=== PATIENT | female | born 1995 | race Caucasian/White ===

== ENCOUNTER 2016-08-15 09:07 | Inpatient (IN) | payer OTHER ==
[~2016-08-15] VITALS: Ht 167.6 cm; Wt 82.0 kg
[~2016-08-15 09:07] MED LIST: PREN1TAB17 PO
[2016-08-15] MEDS ORDERED: LACTATED RINGER'S 1,000 ML IV PRN (09:30)
[2016-08-15] MEDS ORDERED: OXYTOCIN 30 UNITS/LR 500 ML IV PRN (10:30)
[2016-08-15] MEDS ORDERED: BUTORPHANOL 2 MG INJ IV PRN (10:30)
[2016-08-15] MEDS ORDERED: CARBOPROST 250 MCG INJ IM PRN (10:30)
[2016-08-15] MEDS ORDERED: LIDOCAINE 1% (MPF) 30 ML INJ INJ PRN (10:30)
[2016-08-15] MEDS ORDERED: METHYLERGONOVINE 0.2 MG INJ IM PRN (10:30)
[2016-08-15] MEDS ORDERED: MISOPROSTOL 200 MCG TAB PR PRN (10:30)
[2016-08-15] MEDS ORDERED: OXYTOCIN 30 UNITS/LR 500 ML IV SCH ×2 (10:30)
[2016-08-15] MEDS ORDERED: DINOPROSTONE 10 MG VAG SUPP VAG ONE (10:30)
[2016-08-15 10:40] LABS: INR 0.91; PARTIAL THROMBOPLASTIN TIME 24.6 Sec (25.0-35.0); PROTIME 12.2 Sec (12.2-14.2)
[2016-08-15] MEDS: LACTATED RINGER'S 1,000 ML IV SCH ×2 (10:51→15:50)
[2016-08-15 10:52] LABS: BASOPHILS % 0.5 % (0.0-2.0); EOSINOPHILS # 0.2 10^3/ul (0.0-0.5); EOSINOPHILS % 1.9 % (0.0-7.0); HEMATOCRIT 33.5 % (37.0-47.0); HEMOGLOBIN 10.7 g/dl (12.0-16.0); LYMPHOCYTES # 1.6 10^3/ul (0.8-2.9); LYMPHOCYTES % 16.3 % (18.0-55.0); MEAN CORPUSCULAR HEMOGLOBIN 22.9 pg (29.0-33.0); MEAN CORPUSCULAR HGB CONC 32.1 g/dl (32.0-37.0); MEAN CORPUSCULAR VOLUME 71.2 fl (72.0-104.0); MEAN PLATELET VOLUME 12.1 fl (7.4-10.4); MONOCYTE # 0.6 10^3/ul (0.3-0.9); MONOCYTES % 6.2 % (0.0-13.0); NEUTROPHIL # 7.2 10^3/ul (1.6-7.5); NEUTROPHILS % 75.1 % (30.0-74.0); PLATELET COUNT 211 10^3/UL (140-440); RED CELL DISTRIBUTION WIDTH 15.7 % (11.5-14.5); UNCORRECTED WBC 9.6 10^3/ul (4.8-10.8); WHITE BLOOD COUNT 9.6 10^3/ul (4.8-10.8)
--- NOTE | 2016-08-15 11:04 | HP ---
Date/Time of Note Date/Time of Note DATE: 08/15/16 TIME: 11:01 OB - History Hx of Present Free Text/Dictation admitted for elective H&P at term Last Menstrual Period: Oct 25, 2015 Estimated Due Date: Aug 16, 2016 : 1 Para: 0 Care: Good Care Ultrasounds: Normal mid trimester US Obstetrical Complications: None Medical Complications: None Past Family/Social History * Past Medical, Surgical, Family and Obstetric Histories reviewed from chart. Blood Type: B+ Rubella: immune RPR/VDRL: Negative GBS Status: Negative HBsAG: Negative OB Admission Exam Physical Exam HEENT: WNL Heart: Rhythm Normal Lungs: Clear, Equal Abdomen: WNL Extremities: Normal Reflexes: Normal Cervical Dilatation: None Effacement: 0% Station: -3 Membranes: Intact Heart Rate: 140's Accelerations: Accelerations Present Decelerations: No Decelerations Varibility: Marked Contractions on Admission: None OB Assessment/Plan Reason for admission: induction of labor Other Assessment: term gestation Induction Method: per Misoprostol Protocol BRODIE PABON MD Aug 15, 2016 11:04
[2016-08-15 11:11] LABS: CONDITION 1; LH ANALYZER COMMENTS 1; SUSPECT 1
[2016-08-16] MEDS: LACTATED RINGER'S 1,000 ML IV SCH ×3 (01:01→14:33)
[2016-08-16] MEDS ORDERED: NALOXONE (0.4 MG/ML) INJ IV PRN (02:30)
[2016-08-16] MEDS ORDERED: ONDANSETRON 4 MG INJ IV PRN (02:30)
[2016-08-16] MEDS ORDERED: FENTAnyl 2MCG/ML-ROPIV 0.2% 100 ML BAG EPI SCH (02:30)
[2016-08-16] MEDS ORDERED: DIPHENHYDRAMINE 50 MG INJ IV PRN (02:30)
[2016-08-16] MEDS ORDERED: OXYTOCIN 30 UNITS/LR 500 ML IV SCH (10:40)
[2016-08-16] MEDS ORDERED: MINERAL OIL LIGHT 10 ML VIAL TOP ONE (16:50)
--- NOTE | 2016-08-16 20:01 | LDN ---
Date/Time of Note Date/Time of Note DATE: 08/16/16 TIME: 19:59 Delivery Summary of a viable over intact perineum Placenta Delivered: Spontaneously, Intact & Complete Meconium: none Perineum intact?: No Perineal laceration: 2 Perineal laceration repair: 2nd deagree perineal lacerations were repaired with 2 0 Vicryl and 2 0 chromic Anesthesia type: Epidural Estimated blood loss: 300 Sponge & Needle done & correct: Yes All needle counts correct: Yes Any foreign bodies felt in the: No Problems: Delivery Information Sex Sex: female Apgars 1 Minute: 8 5 Minute: 9 Suctioning Nose & mouth suctioned at nnamdi: Yes Delee suction performed: No Umbilical Cord Umbilical cord with: 3 Vessels Cord presentations: nuchal cord Nuchal cord present X: 1 Cord Blood was obtained: Yes Mother & Baby Disposition Disposition Mom & Baby to Maternity; Good: Yes (mother and baby were recovered in good condition ) Mom transferred to: Other (maternity ) Baby to NICU: No BRODIE PABON MD Aug 16, 2016 20:01
[2016-08-16] MEDS ORDERED: IBUPROFEN 600 MG TAB PO PRN (21:30)
[2016-08-16 21:35] VITALS: BP 105/69; PULSE 80; RESP 0
--- NOTE | 2016-08-16 21:51 | DELSUM ---
Delivery Summary A-C Datetime Report Generated by CPN: 08/16/2016 21:50 DELIVERY PERSONNEL Textbook Associate: Cecelia Garay MATERNAL INFORMATION Delivery Anesthesia: Epidural Medications in Delivery: 30 UNITS PITOCIN IN 500 ML LR Estimated Blood Loss (ml): 300 Placenta Cultured: No Maternal Complications: None RN Comments: Induction of labor LABOR SUMMARY EDC: 08/16/2016 00:00 No. Babies in Womb: 1 Attempted: No Labor Anesthesia: Epidural LABOR INFORMATION Reason for Induction: Other Reason for Induction- Other: TERM Onset of Labor: 08/16/2016 07:00 Complete Dilatation: 08/16/2016 14:21 Cervical Ripening Agents: Cervidil Oxytocin: Induction Group B Beta Strep: Negative Antibiotics # of Doses: 0 Antibiotics Time of Last Dose: 0 Steroids Given: None Reason Steroids Not Administered: Not Applicable MEMBRANES Membranes Rupture Method: Spontaneous Rupture of Membranes: 08/16/2016 13:29 Length of Rupture (hr): 5.58 Amniotic Fluid Color: Clear Amniotic Fluid Amount: Small Amniotic Fluid Odor: Normal STAGES OF LABOR Stage 1 hr: 7 Stage 1 min: 21 Stage 2 hr: 4 Stage 2 min: 43 Stage 3 hr: 0 Stage 3 min: 1 Total Time in Labor hr: 12 Total Time in Labor min: 5 VAGINAL DELIVERY Episiotomy: None Laceration Extension: Second Degree Laceration Type: Perineal Laceration Repair: Yes Initial Vag Sponge Count: 20 Final Vag Sponge Count: 20 Initial Vag Sharps Count: 4 Final Vag Sharps Count: 4 Sponge Count Correct: Yes Sharps Count Correct: Yes BABY A INFORMATION Delivery Date/Time: 08/16/2016 19:04 Method of Delivery: Vaginal Born in Route : No : N/A Forceps: N/A Vacuum Extraction: N/A Shoulder Dystocia : N/A SHOULDER DYSTOCIA BABY A Delivery Date/Time: 08/16/2016 19:04 PRESENTATION/POSITION BABY A Presentation: Cephalic Cephalic Presentation: Vertex Vertex Position: Left Occipital Anterior Breech Presentation: N/A PLACENTA INFORMATION BABY A Placenta Delivery Time : 08/16/2016 19:05 Placenta Method of Delivery: Spontaneous Placenta Status: Delivered SCORES BABY A Heart Rate 1 min: >100 bpm Resp Effort 1 min: Good Cry Reflex Irritability 1 min: Cough/Sneeze/Pulls Away Muscle Tone 1 min: Active Motion Color 1 min: Blue/Pale Resuscitation Effort 1 min: Tactile Stimulation SCORE 1 MIN: 8 Heart Rate 5 min: >100 bpm Resp Effort 5 min: Good Cry Reflex Irritability 5 min: Cough/Sneeze/Pulls Away Muscle Tone 5 min: Active Motion Color 5 min: Body Gilbert, Extremit Blue Resuscitation Effort 5 min: Tactile Stimulation SCORE 5 MIN: 9 INFORMATION BABY A Gestational Age at Delivery: 40.0 Gestational Status: Full Term- 39- 40.6 Weeks Infant Outcome : Liveborn Infant Condition : Stable Sex: Female IDENTIFICATION/MEDS BABY A ID Band Number: [id number] ID Band Location: Right Leg; Left Arm Sensor Applied: Yes Sensor Number: [id number] Sensor Location : Cord Clamp Vitamin K Given : Not Given Erythromycin Given: Not Given WEIGHT/LENGTH BABY A Birthweight (gm): 3105 Weight (lb): 6 Weight (oz): 14 Length (in): 19.00 Infant Length (cm): 48.26 CORD INFORMATION BABY A No. Cord Vessels: 3 Nuchal Cord : Around Neck x1, Loose Nuchal Cord- Other: AROUND THE BODY Cord Blood Taken: Yes Suction: Mouth; Nose ASSESSMENT BABY A Complications: None Physical Findings at Delivery: Within Normal Limits Infant Respirations: Appears Normal Dispensing Optician/ALS Called : Yes Infant Care By: Kelsey Hardin Transferred To: Remains with Mother
[2016-08-16] MEDS ORDERED: BENZOCAINE 20% 56 ML SPRAY TOP PRN (22:00)
[2016-08-16] MEDS ORDERED: CARBOPROST 250 MCG INJ IM PRN (22:00)
[2016-08-16] MEDS ORDERED: MISOPROSTOL 200 MCG TAB PR PRN (22:00)
[2016-08-16] MEDS ORDERED: METHYLERGONOVINE 0.2 MG INJ IM PRN (22:00)
[2016-08-16] MEDS ORDERED: OXYTOCIN 30 UNITS/LR 500 ML IV PRN (22:00)
[2016-08-16] MEDS ORDERED: ZOLPIDEM 5 MG TAB PO PRN (22:00)
[2016-08-16] MEDS ORDERED: LANOLIN 7 GM TUBE TOP PRN (22:00)
[2016-08-16] MEDS ORDERED: DIBUCAINE 1% 30 GM OINT PR PRN (22:00)
[2016-08-16] MEDS ORDERED: WITCH HAZEL/GLYCERIN PAD PR PRN (22:00)
[2016-08-16] MEDS ORDERED: ACETAMINOPHEN/CODEINE #3 TAB PO PRN (22:00)
[2016-08-16 22:05] VITALS: BP 116/66; PULSE 74; RESP 18
[2016-08-16] MEDS: LACTATED RINGER'S 1,000 ML IV* SCH (23:19)
[2016-08-16] MEDS: MAGNESIUM HYDROXIDE 30ML CUP PO SCH (23:19)
[2016-08-17 00:30] VITALS: BP 119/58; PULSE 76; RESP 18
[2016-08-17] MEDS: ACETAMINOPHEN/CODEINE #3 TAB PO PRN ×2 (04:02→09:51)
[2016-08-17 04:20] VITALS: BP 118/64; PULSE 73; RESP 18
[2016-08-17] MEDS: LACTATED RINGER'S 1,000 ML IV* SCH ×3 (05:59→21:01)
[2016-08-17] MEDS: CEPHALEXIN 500 MG CAP PO SCH ×4 (06:09→17:19)
[2016-08-17] MEDS: IBUPROFEN 600 MG TAB PO SCH ×4 (06:09→17:19)
[2016-08-17 08:00] VITALS: BP 128/60; PULSE 74; RESP 18
[2016-08-17 08:13] LABS: BASOPHIL # 0.1 10^3/ul (0.0-0.1); BASOPHILS % 0.4 % (0.0-2.0); EOSINOPHILS # 0.1 10^3/ul (0.0-0.5); EOSINOPHILS % 0.6 % (0.0-7.0); HEMATOCRIT 29.4 % (37.0-47.0); HEMOGLOBIN 9.5 g/dl (12.0-16.0); LYMPHOCYTES # 2.3 10^3/ul (0.8-2.9); LYMPHOCYTES % 15.5 % (18.0-55.0); MEAN CORPUSCULAR HEMOGLOBIN 23.3 pg (29.0-33.0); MEAN CORPUSCULAR HGB CONC 32.3 g/dl (32.0-37.0); MEAN CORPUSCULAR VOLUME 72.2 fl (72.0-104.0); MEAN PLATELET VOLUME 11.8 fl (7.4-10.4); MONOCYTE # 0.7 10^3/ul (0.3-0.9); MONOCYTES % 4.8 % (0.0-13.0); NEUTROPHIL # 11.5 10^3/ul (1.6-7.5); NEUTROPHILS % 78.7 % (30.0-74.0); PLATELET COUNT 179 10^3/UL (140-440); RED BLOOD COUNT 4.07 10^6/ul (4.20-5.40); RED CELL DISTRIBUTION WIDTH 16.4 % (11.5-14.5); UNCORRECTED WBC 14.6 10^3/ul (4.8-10.8); WHITE BLOOD COUNT 14.6 10^3/ul (4.8-10.8)
[2016-08-17 08:17] LABS: CONDITION 1; LH ANALYZER COMMENTS 1; SUSPECT 1
[2016-08-17] MEDS: MAGNESIUM HYDROXIDE 30ML CUP PO SCH ×2 (09:49→21:00)
[2016-08-17] MEDS: SENNA/DOCUSATE NA (8.6MG/50MG) TAB PO SCH ×2 (09:49→21:00)
--- NOTE | 2016-08-17 14:04 | DS ---
Date/Time of Note Date/Time of Note home next day DATE: 08/17/16 TIME: 14:03 Obstetrical Discharge Record Final Diagnosis Final Diagnosis: Term delivered Other Final Diagnosis S/P vaginal delivery Vaginal Delivery Obstetrical Delivery: Spontaneous, Laceration, Repaired Complications Augmentation: Yes Induction: Yes Condition on Discharge Physical Assessment Last Vitals: see nurses notes Voiding: Yes Bowel Movement: Yes Breast: Soft, non-tender, Filling Fundus: Firm Abdomen and Incision: soft BS + Episiotomy: perineum: healing Calf Tenderness: No Patient Condition: Good BRODIE PABON MD Aug 17, 2016 14:04
--- NOTE | 2016-08-17 14:06 | PD.PPDC ---
TRANSFER [employer] DRIER Discharge Instruction Provider Information Physician Information 20 y/o female had vaginal delivery Diagnosis Final Diagnosis: S/P vaginal delivery Condition Patient Condition: Good Diet Diet: Resume Regular Diet Activity/Restrictions Activity: Normal Activity May Shower Restrictions: Nothing in the Vagina Return to Work or School: Oct 02, 2016 Follow-up Follow-up with Physician: 4, Week/Weeks Return to clinic for OB Instructions: Breast Tenderness Depression Comment: pelvic rest x 6 weeks BRODIE PABON MD Aug 17, 2016 14:06
[2016-08-17] MEDS ORDERED: IBUP-1542 PO (14:07)
[2016-08-17 16:00] VITALS: BP 123/86; PULSE 83; RESP 19
[2016-08-17 19:35] VITALS: BP 112/82; PULSE 72; RESP 18
[2016-08-18] MEDS: CEPHALEXIN 500 MG CAP PO SCH ×2 (00:06→05:58)
[2016-08-18] MEDS: IBUPROFEN 600 MG TAB PO SCH ×2 (00:06→05:58)
[2016-08-18 04:15] VITALS: BP 130/66; PULSE 79; RESP 18
[2016-08-18] MEDS: LACTATED RINGER'S 1,000 ML IV* SCH (05:57)
[2016-08-18 07:29] LABS: BASOPHIL # 0.1 10^3/ul (0.0-0.1); BASOPHILS % 0.5 % (0.0-2.0); EOSINOPHILS # 0.3 10^3/ul (0.0-0.5); EOSINOPHILS % 2.3 % (0.0-7.0); HEMATOCRIT 27.4 % (37.0-47.0); HEMOGLOBIN 8.8 g/dl (12.0-16.0); LYMPHOCYTES # 2.4 10^3/ul (0.8-2.9); LYMPHOCYTES % 19.9 % (18.0-55.0); MEAN CORPUSCULAR HEMOGLOBIN 23.2 pg (29.0-33.0); MEAN CORPUSCULAR HGB CONC 32.2 g/dl (32.0-37.0); MEAN PLATELET VOLUME 11.8 fl (7.4-10.4); MONOCYTE # 0.6 10^3/ul (0.3-0.9); MONOCYTES % 4.7 % (0.0-13.0); NEUTROPHIL # 8.9 10^3/ul (1.6-7.5); NEUTROPHILS % 72.6 % (30.0-74.0); PLATELET COUNT 178 10^3/UL (140-440); RED CELL DISTRIBUTION WIDTH 16.5 % (11.5-14.5); UNCORRECTED WBC 12.2 10^3/ul (4.8-10.8); WHITE BLOOD COUNT 12.2 10^3/ul (4.8-10.8)
[2016-08-18 07:33] LABS: CONDITION 1; LH ANALYZER COMMENTS 1; SUSPECT 1
[2016-08-18 08:14] VITALS: BP 125/82; PULSE 86; RESP 20
[2016-08-18] MEDS: MAGNESIUM HYDROXIDE 30ML CUP PO SCH (08:54)
[2016-08-18] MEDS: SENNA/DOCUSATE NA (8.6MG/50MG) TAB PO SCH (08:54)
[2016-08-18] MEDS: ACETAMINOPHEN/CODEINE #3 TAB PO PRN (08:55)
[2016-08-18] MEDS ORDERED: VARICELLA VACCINE LIVE/PF 1,350 UNIT/0.5 ML ML SC* ONE (09:00)
[2016-08-18] MEDS ORDERED: MEASLES,MUMPS,RUBELLA VACCINE INJ SC* ONE (09:00)
[2016-08-18] MEDS ORDERED: DIPHTH/TET/ACEL PERTUSS (ADULT) 0.5 ML VIAL IM* ONE (09:00)
== END 2016-08-18 13:50 | disposition home or self-care (01) | DRG 775 ==
LOC: L-D 09:07 → PP1 08-16 21:27
PROVIDERS: ADMIT Obstetrics & Gynecology; ATTEND Obstetrics & Gynecology
PROC: 10E0XZZ Delivery of Products of Conception, External Approach (ICD-10-PCS; principal; 2016-08-16)
PROC: 0KQM0ZZ Repair Perineum Muscle, Open Approach (ICD-10-PCS; 2016-08-16)
PROC: 3E0P7GC Introduction of Other Therapeutic Substance into Female Reproductive, Via Natural or Artificial Opening (ICD-10-PCS; 2016-08-16)
DX: O70.1 Second degree perineal laceration during delivery (principal); Z37.0 Single live birth; Z3A.39 39 weeks gestation of pregnancy
CPT/HCPCS: 62319; 85025; 85610; 85730; 86592; 86703; 86900; 86901; 90715; 90716; 99464; J2590; J3010; J7120

== ENCOUNTER 2016-12-17 00:20 | Emergency (ER) | payer OTHER ==
[~2016-12-17] VITALS: Wt 68.0 kg
[~2016-12-17 00:20] MED LIST changes: +IBUP-1542 PO
--- NOTE | 2016-12-17 02:51 | ERA ---
ER Documentation Chief Complaint Date/Time DATE: 12/17/16 TIME: 02:49 Chief Complaint Fall and hit the back on the pole. Back pain HPI This is a 21-year-old female who presents 4 hours after tripping and falling on a light pole. Patient describes pain in the lower back that is 7 out of 10 and worse with movement. Patient has not taken any medications to relieve the symptoms. Positive history of back injury 1 year ago without diagnosis. Patient's history is unreliable. Denies loss of bowel or bladder control, loss of consciousness, injury to other body parts. ROS All systems reviewed and are negative except as per history of present illness. Medications Home Meds Active Scripts Ibuprofen* (Ibuprofen*) 600 Mg Tablet, 600 MG PO Q6, #20 TAB 0 Refills Prov:BRODIE PABON MD 08/17/16 Reported Medications Vit-Iron Fumarate-FA ( Tablet) 1 Each Tablet, 1 TAB PO DAILY, TAB 04/25/16 Allergies Allergies: Coded Allergies: No Known Drug Allergy (Verified Allergy, Unknown, 04/25/16) PMhx/Soc Medical and Surgical Hx: pt denies Medical Hx, pt denies Surgical Hx History of Surgery: No Anesthesia Reaction: No Hx Neurological Disorder: No Hx Respiratory Disorders: No Hx Cardiac Disorders: No Hx Psychiatric Problems: No Hx Miscellaneous Medical Probl: No Hx Alcohol Use: No Hx Substance Use: No Hx Tobacco Use: No Smoking Status: Never smoker Physical Exam Vitals Vital Signs Date Time Temp Pulse Resp B/P Pulse Ox O2 Delivery O2 Flow Rate FiO2 12/17/16 00:24 98.2 66 20 108/60 98 Physical Exam Const: Patient is in a wheelchair and on presentation is happy. As exam goes on becomes noncompliant and upset and suddenly becomes an acute distress. No distracting injuries. Head: Atraumatic Eyes: Normal Conjunctiva ENT: Normal External Ears, Nose and Mouth. Neck: Full range of motion..~ No meningismus. Resp: Clear to auscultation bilaterally Cardio: Regular rate and rhythm, no murmurs Abd: Soft, non tender, non distended. Normal bowel sounds Skin: No petechiae or rashes Back: No midline or flank tenderness. Limited range of motion secondary to pain. Ext: No cyanosis, or edema. Pulses 2+ bilaterally. Neur: Awake and alert. Neurovascularly intact bilaterally. Psych: Noncompliant with exam. Acting overemotional. Do not believe there is any endangerment of herself or other people and she denies wanting to hurt herself or other people. Results 24 hrs Current Medications Medications (Trade) Dose Ordered Sig/Celine Route PRN Reason Start Time Stop Time Status Last Admin Dose Admin Acetaminophen/ Hydrocodone Bitart ([place] (5/325)) 1 tab ONCE ONCE PO 12/17/16 03:00 12/17/16 03:01 DC 12/17/16 03:00 Procedures/MDM 21-year-old female being worked up for acute back pain. Patient had a mechanism of injury including tripping and hitting a slight pull on the way down. Patient describes her pain as 10 out of 10 and worse with movement. Patient is able to ambulate. Since there is mechanism of injury went ahead and got an x-ray of the lumbar spine which was negative. Patient is neurovascularly intact bilaterally. DTRs were unobtainable due to compliance. Straight leg test was unobtainable due to compliance. Limited range of motion secondary to pain. There is no midline tenderness. We will go ahead and discharge the patient with ibuprofen as I believe muscle relaxers and narcotics are not appropriate at this time. At this time I have no suspicion for cauda equina syndrome, or endangerment of the spinal cord. Patient has stable vital signs and her condition is currently appropriate for discharge. Patient will be discharged with instructions and return precautions. Departure Diagnosis: Primary Impression: Back pain Qualified Code: M54.5 - Acute low back pain, unspecified back pain laterality , with sciatica presence unspecified Additional Impression: Injury of back Qualified Code: S39.92XA - Injury of back, initial encounter Condition: Stable Additional Instructions: Follow up with your PCP within the next 1-3 days for a more thorough evaluation and a possible referral to a specialist. Return the the emergency department immediately if symptoms worsen or change. If you have any questions regarding medications, ask your pharmacist or us before you leave. If any adverse reactions occur while taking your medications, discontinue the treatment and return to the emergency department immediately. Take your medications as directed, and complete the entire course of treatment. URI TREJO PA-C December 17, 2016 02:51
[2016-12-17] MEDS ORDERED: HYDROCODONE/APAP (5/325) TAB PO ONE (03:00)
--- NOTE | 2016-12-17 03:36 | RADRPT ---
PROCEDURE: XR Lumbar Spine. CLINICAL INDICATION: trauma TECHNIQUE: 3 views of the lumbar spine were obtained. COMPARISON: No prior studies are available for comparison. FINDINGS: Slight leftward scoliosis of the spine is likely positional. Vertebral body and disk space heights are preserved. No fracture or significant listhesis is seen. No lytic or blastic lesion. No visua lized soft tissue abnormality. IMPRESSION: No definite acute bony abnormality. RPTAT: [facility]BE Physician Barb Date Time Electronically viewed and signed by Aracely Bhatia Physician on 12/17/2016 03:35 LE/
[2016-12-17] MEDS ORDERED: IBUP-1542 PO (03:47)
[2016-12-17 04:09] VITALS: PULSE 98; RESP 20; TEMP 98.6
== END 2016-12-17 04:10 | disposition home or self-care (01) ==
LOC: FTE 00:20
DX: S39.92XA Unspecified injury of lower back, initial encounter (principal); W01.198A Fall on same level from slipping, tripping and stumbling with subsequent striking against other object, initial encounter; Y92.9 Unspecified place or not applicable
CPT/HCPCS: 72100; Z7502; Z7610

== ENCOUNTER 2017-06-07 23:17 | Emergency (ER) | payer SELFPAY ==
[~2017-06-07] VITALS: Ht 162.6 cm; Wt 73.0 kg
[2017-06-07 23:20] VITALS: Ht 162.6 cm; Wt 73.0 kg
[2017-06-08 02:03] LABS: URINE BLOOD (Dip) POC Negative (NEGATIVE)
--- NOTE | 2017-06-08 02:53 | ERD ---
ER Documentation Chief Complaint Chief Complaint c/o intermittent lower abd pain x 1 month. (+) n/v. Worse tonight. HPI 21-year-old female presents with a chief complaint of lower abdominal pain 1 month. No aggravating or alleviating factors. Denies fever or chills. No sick contacts. No vomiting in the past week. Patient thinks that she might be . Last menstrual period 1-2 months ago. Able to tolerate p.o. Patient has no other complaints and describes no other associated manifestations. Nursing notes have been reviewed and are consistent with history given. ROS All systems reviewed and are negative except as per history of present illness. Medications Home Meds Active Scripts Ibuprofen* (Motrin*) 600 Mg Tab, 600 MG PO Q6H Y for PAIN AND OR ELEVATED TEMP, #30 TAB Prov:URI TREJO PA-C 12/17/16 Ibuprofen* (Ibuprofen*) 600 Mg Tablet, 600 MG PO Q6, #20 TAB 0 Refills Prov:BRODIE PABON MD 08/17/16 Reported Medications Vit-Iron Fumarate-FA ( Tablet) 1 Each Tablet, 1 TAB PO DAILY, TAB 04/25/16 Allergies Allergies: Coded Allergies: No Known Drug Allergy (Verified Allergy, Unknown, 04/25/16) PMhx/Soc History of Surgery: No Anesthesia Reaction: No Hx Neurological Disorder: No Hx Respiratory Disorders: No Hx Cardiac Disorders: No Hx Psychiatric Problems: No Hx Miscellaneous Medical Probl: No Hx Alcohol Use: No Hx Substance Use: No Hx Tobacco Use: No Physical Exam Vitals Vital Signs Date Time Temp Pulse Resp B/P Pulse Ox O2 Delivery O2 Flow Rate FiO2 06/07/17 23:20 97.6 65 18 109/75 98 Physical Exam Const: [] Head: Atraumatic Eyes: Normal Conjunctiva ENT: Normal External Ears, Nose and Mouth. Neck: Full range of motion..~ No meningismus. Resp: Clear to auscultation bilaterally Cardio: Regular rate and rhythm, no murmurs Abd: Soft, non tender, non distended. Normal bowel sounds. No McBurney's point tenderness. Negative psoas, obturator, Rovsing's, Montoya's signs. Able to heel strike without tenderness. No masses palpated. No pelvic tenderness or masses palpated. Skin: No petechiae or rashes Back: No midline or flank tenderness Ext: No cyanosis, or edema Neur: Awake and alert Psych: Normal Mood and Affect Results 24 hrs Laboratory Tests Test 06/08/17 02:00 Bedside Urine pH (LAB) 5.5 Bedside Urine Protein (LAB) 1+ Bedside Urine Glucose (UA) Negative Bedside Urine Ketones (LAB) 2+ Bedside Urine Blood Negative Bedside Urine Nitrite (LAB) Negative Bedside Urine Leukocyte Esterase (L Negative Procedures/MDM 21-year-old female presenting with a chief complaints of lower abdominal/pelvic pain 1 month. Denies constipation and diarrhea. Tolerates p.o. Urine negative. Urine dip unremarkable. I have no suspicion for ovarian torsion, PID, other bacterial infection, mechanical obstruction or other acute abdomen. Most likely diagnosis is lower abdominal pain of unknown etiology. I have spoke with the patient regarding their condition and future management. They have verbally responded that they understand their status and treatment plan. The patients vitals are stable, and their current condition is appropriate for discharge. The patient will be given discharge instructions with return precautions. Departure Diagnosis: Primary Impression: Abdominal pain Abdominal location: unspecified location Qualified Code: R10.9 - Abdominal pain, unspecified abdominal location Condition: Stable Additional Instructions: Follow up with your PCP within the next 1-3 days for a more thorough evaluation and a possible referral to a specialist. Return the the emergency department immediately if symptoms worsen or change. If you have any questions regarding medications, ask your pharmacist or us before you leave. If any adverse reactions occur while taking your medications, discontinue the treatment and return to the emergency department immediately. Take your medications as directed, and complete the entire course of treatment. URI TREJO PA-C Jun 08, 2017 02:53
[2017-06-08 03:53] LABS: BASOPHIL # 0.1 10^3/ul (0.0-0.1); BASOPHILS % 0.3 % (0.0-2.0); EOSINOPHILS % 0.2 % (0.0-7.0); HEMATOCRIT 39.2 % (37.0-47.0); HEMOGLOBIN 12.3 g/dl (12.0-16.0); LYMPHOCYTES # 1.3 10^3/ul (0.8-2.9); LYMPHOCYTES % 7.7 % (18.0-55.0); MEAN CORPUSCULAR HEMOGLOBIN 24.1 pg (29.0-33.0); MEAN CORPUSCULAR HGB CONC 31.4 g/dl (32.0-37.0); MEAN CORPUSCULAR VOLUME 76.7 fl (72.0-104.0); MEAN PLATELET VOLUME 12.8 fl (7.4-10.4); MONOCYTE # 0.5 10^3/ul (0.3-0.9); MONOCYTES % 3.1 % (0.0-13.0); NEUTROPHIL # 15.3 10^3/ul (1.6-7.5); NEUTROPHILS % 88.2 % (30.0-74.0); PLATELET COUNT 255 10^3/UL (140-415); RED BLOOD COUNT 5.11 10^6/ul (4.20-5.40); RED CELL DISTRIBUTION WIDTH 14.6 % (11.5-14.5); WHITE BLOOD COUNT 17.4 10^3/ul (4.8-10.8)
--- NOTE | 2017-06-08 03:54 | RADRPT ---
PROCEDURE: ULTRASOUND OBSTETRICAL CLINICAL INDICATION: 21-year-old female with pelvic pain. TECHNIQUE: Multiple sonographic images of the pelvis were obtained utilizing a transabdominal and endovaginal technique. The images were reviewed on a PACS workstation. COMPARISON: None. FINDINGS: The uterus is visualized and unremarkable. The endometrial echo complex is within normal limits and measures 9.2 mm. There is no sonographic evidence for an intrauterine gestation. There is moderate c ul-de-sac and bilateral adnexal free fluid with debris. The right ovary has a normal echotexture and measures 2.7 x 1.9 x 2.1 cm. The left ovary has a normal echotexture and measures 3.6 x 2.9 x 3.4 cm. There is flow identified within the ovaries bilaterally. No adnexal masses are noted. IMPRESSION: 1. No sonographic evidence for an intrauterine gestation. If the patient has a positive test, an ectopic cannot be excluded. Clinical correlation is necessary. 2. Moderate diffuse pelvic free fluid with debris which may represent blood products. .Nahum Griffin MD, Date Time Electronically viewed and signed by .Nahum Griffin MD, on 06/08/2017 03:54 .M/
--- NOTE | 2017-06-08 03:55 | ERD ---
ER Documentation Chief Complaint Chief Complaint c/o intermittent lower abd pain x 1 month. (+) n/v. Worse tonight. HPI 21-year-old female presents with a chief complaint of lower abdominal pain 1 month. No aggravating or alleviating factors. Denies fever or chills. No sick contacts. No vomiting in the past week. Patient thinks that she might be . Last menstrual period 1-2 months ago. Able to tolerate p.o. Patient has no other complaints and describes no other associated manifestations. Nursing notes have been reviewed and are consistent with history given. ROS All systems reviewed and are negative except as per history of present illness. Medications Home Meds Active Scripts Ibuprofen* (Motrin*) 600 Mg Tab, 600 MG PO Q6H Y for PAIN AND OR ELEVATED TEMP, #30 TAB Prov:URI TREJO PA-C 12/17/16 Ibuprofen* (Ibuprofen*) 600 Mg Tablet, 600 MG PO Q6, #20 TAB 0 Refills Prov:BRODIE PABON MD 08/17/16 Reported Medications Vit-Iron Fumarate-FA ( Tablet) 1 Each Tablet, 1 TAB PO DAILY, TAB 04/25/16 Allergies Allergies: Coded Allergies: No Known Drug Allergy (Verified Allergy, Unknown, 04/25/16) PMhx/Soc Medical and Surgical Hx: pt denies Medical Hx, pt denies Surgical Hx History of Surgery: No Anesthesia Reaction: No Hx Neurological Disorder: No Hx Respiratory Disorders: No Hx Cardiac Disorders: No Hx Psychiatric Problems: No Hx Miscellaneous Medical Probl: No Hx Alcohol Use: No Hx Substance Use: No Hx Tobacco Use: No Smoking Status: Never smoker Physical Exam Vitals Vital Signs Date Time Temp Pulse Resp B/P Pulse Ox O2 Delivery O2 Flow Rate FiO2 06/08/17 05:18 98.2 72 16 111/63 98 Room Air 06/07/17 23:20 97.6 65 18 109/75 98 Physical Exam Const: Well-appearing 21-year-old female in no acute distress Head: Atraumatic Eyes: Normal Conjunctiva ENT: Normal External Ears, Nose and Mouth. Neck: Full range of motion..~ No meningismus. Resp: Clear to auscultation bilaterally Cardio: Regular rate and rhythm, no murmurs Abd: Mild pelvic tenderness.Soft, non tender, non distended. Normal bowel sounds. No McBurney's point tenderness. Negative psoas, obturator, Rovsing's, Montoya's signs. Able to heel strike without tenderness. No masses palpated. No pelvic masses palpated. Skin: No petechiae or rashes Back: No midline or flank tenderness Ext: No cyanosis, or edema Neur: Awake and alert Psych: Normal Mood and Affect Result Diagram: 06/08/17 0300 06/08/17 0300 Results 24 hrs Laboratory Tests Test 06/08/17 02:00 06/08/17 03:00 06/08/17 03:10 Bedside Urine pH (LAB) 5.5 Bedside Urine Protein (LAB) 1+ Bedside Urine Glucose (UA) Negative Bedside Urine Ketones (LAB) 2+ Bedside Urine Blood Negative Bedside Urine Nitrite (LAB) Negative Bedside Urine Leukocyte Esterase (L Negative White Blood Count 17.410^3/ul Red Blood Count 5.1110^6/ul Hemoglobin 12.3g/dl Hematocrit 39.2% Mean Corpuscular Volume 76.7fl Mean Corpuscular Hemoglobin 24.1pg Mean Corpuscular Hemoglobin Concent 31.4g/dl Red Cell Distribution Width 14.6% Platelet Count 58351^3/UL Mean Platelet Volume 12.8fl Neutrophils % 88.2% Lymphocytes % 7.7% Monocytes % 3.1% Eosinophils % 0.2% Basophils % 0.3% Nucleated Red Blood Cells % 0.0/100WBC Neutrophils # 15.310^3/ul Lymphocytes # 1.310^3/ul Monocytes # 0.510^3/ul Eosinophils # 0.010^3/ul Basophils # 0.110^3/ul Nucleated Red Blood Cells # 0.010^3/ul Sodium Level 142mmol/L Potassium Level 4.0mmol/L Chloride Level 106mmol/L Carbon Dioxide Level 21mmol/L Anion Gap 19 Blood Urea Nitrogen 13mg/dl Creatinine 0.62mg/dl Glucose Level 91mg/dl Calcium Level 9.8mg/dl Total Bilirubin 0.3mg/dl Direct Bilirubin 0.00mg/dl Indirect Bilirubin 0.3mg/dl Aspartate Amino Transf (AST/SGOT) 35IU/L Alanine Aminotransferase (ALT/SGPT) 13IU/L Alkaline Phosphatase 84IU/L Total Protein 7.7g/dl Albumin 4.3g/dl Globulin 3.40g/dl Albumin/Globulin Ratio 1.26 Lipase 160U/L Beta HCG, Quantitative 111.8mIU/ml Urine Color YELLOW Urine Clarity SLIGHTLY CLOUDY Urine pH 5.0 Urine Specific [place] 1.026 Urine Ketones 2+mg/dL Urine Nitrite NEGATIVEmg/dL Urine Bilirubin NEGATIVEmg/dL Urine Urobilinogen NEGATIVEmg/dL Urine Leukocyte Esterase NEGATIVELeu/ul Urine Microscopic RBC 0/HPF Urine Microscopic WBC 2/HPF Urine Squamous Epithelial Cells FEW/HPF Urine Mucus MANY/HPF Urine Hemoglobin NEGATIVEmg/dL Urine Glucose NEGATIVEmg/dL Urine Total Protein NEGATIVEmg/dl Procedures/MDM 21-year-old female presenting with a chief complaints of lower abdominal/pelvic pain 1 month. Denies constipation and diarrhea. Tolerates p.o. Refuses pain medications in the ED. Urine Positive. Urine dip unremarkable. Due to positive urine test, workup was obtained including ultrasound and labs. Ultrasound was read by the radiologist given the following impression: 1. No sonographic evidence for an intrauterine gestation. If the patient has a positive test, an ectopic cannot be excluded. Clinical correlation is necessary. 2. Moderate diffuse pelvic free fluid with debris which may represent blood products. Labs revealed the following: WBC 17.4, neutrophil 88.2, lymphocytes 7.7, anion gap 19. Urinalysis: 1+ protein, 2+ ketones, many mucus. Ultrasound limited was ordered of the abdomen. This case will be handed off to VANNESSA Lemos Departure Diagnosis: Primary Impression: Abdominal pain Abdominal location: unspecified location Qualified Code: R10.9 - Abdominal pain, unspecified abdominal location Condition: Stable Patient Instructions: Abdominal Pain Referrals: MELISSA CROWLEY (PCP) Additional Instructions: Follow up with your PCP within the next 1-3 days for a more thorough evaluation and a possible referral to a specialist. Return the the emergency department immediately if symptoms worsen or change. If you have any questions regarding medications, ask your pharmacist or us before you leave. If any adverse reactions occur while taking your medications, discontinue the treatment and return to the emergency department immediately. Take your medications as directed, and complete the entire course of treatment. URI TREJO PA-C Jun 08, 2017 03:55
[2017-06-08 04:05] LABS: ADD UMIC NO; UR ASCORBIC ACID NEGATIVE (NEGATIVE); UR BILIRUBIN (Dip) NEGATIVE (NEGATIVE); UR BLOOD (Dip) NEGATIVE (NEGATIVE); UR CLARITY SLIGHTLY CLOUDY (CLEAR); UR COLOR YELLOW (YELLOW); UR GLUCOSE (Dip) NEGATIVE (NEGATIVE); UR KETONES (Dip) 2+ mg/dL (NEGATIVE); UR LEUKOCYTE ESTERASE (Dip) NEGATIVE Leu/ul (NEGATIVE); UR MUCUS MANY /HPF (NONE SEEN); UR NITRITE (Dip) NEGATIVE (NEGATIVE); UR RBC 0 /HPF (0-5); UR SPECIFIC GRAVITY (Dip) 1.026 (1.003-1.030); UR SQUAMOUS EPITHELIAL CELL FEW /HPF (FEW); UR TOTAL PROTEIN (Dip) NEGATIVE (NEGATIVE); UR UROBILINOGEN (Dip) NEGATIVE (NEGATIVE)
[2017-06-08 05:35] LABS: ALBUMIN 4.3 g/dl (3.3-4.9); ALBUMIN/GLOBULIN RATIO 1.26; BILIRUBIN,INDIRECT 0.3 mg/dl (0-1.1); BILIRUBIN,TOTAL 0.3 mg/dl (0.2-1.3); CALCIUM 9.8 mg/dl (8.4-10.2); CREATININE 0.62 mg/dl (0.44-1.00); TOTAL PROTEIN 7.7 g/dl (6.1-8.1)
[2017-06-08] MEDS ORDERED: HYDR-906 PO (06:08)
--- NOTE | 2017-06-08 06:39 | RADRPT ---
PROCEDURE: US Abdomen (right upper quadrant). CLINICAL INDICATION: Abdominal pain. TECHNIQUE: Multiple real-time longitudinal and transverse images of the right upper quadrant of th e abdomen were acquired utilizing a curved array transducer. Images were reviewed on a high-resoluti on PACS workstation. COMPARISON: None FINDINGS: The liver is normal in size and demonstrates normal echogenicity. No focal intrahepatic mass is id entified. The gallbladder is normal in appearance. There is no pericholecystic fluid or gallbladde r wall thickening. No intra or extrahepatic biliary dilatation is seen. The common bile duct measur es 2.8 mm in maximal dimension. The portal and hepatic veins are patent demonstrating normal directi onal flow. The visualized portions of the pancreas are unremarkable with obscuration of the tail of the pancreas. No free fluid is identified. The right kidney measures 10.7 cm in length. There is normal echogenicity within the right kidney. There is no perinephric fluid collection. No hydronephrosis, mass, or calculus is seen. IMPRESSION: 1. Unremarkable right upper quadrant ultrasound. RPTAT: .Enedelia Cordova MD, Date Time Electronically viewed and signed by .Enedelia Cordova MD, on 06/08/2017 06:38 .G/
--- NOTE | 2017-06-08 06:42 | EN ---
Date/Time of Note Date/Time of Note DATE: 06/08/17 TIME: 06:40 ER Progress Note Patient was signed out to me by Americo Geronimo PA-C pending results of a right upper quadrant ultrasound. Ultrasound is unremarkable. I have explained the results to the patient. Patient will be discharged home with medication as prescribed by provider Grazyna. Instructed to return in 2 days for a repeat beta quant. DIAGNOSTIC IMAGING REPORT Patient: LAURA LING : 1995 Age: 21 Sex: F MR #: [id number] DOS: 06/08/17 0000 Ordering MD: AMERICO GERONIMO PA-C Location: [facility] Room/Bed: PROCEDURE: US Abdomen (right upper quadrant). CLINICAL INDICATION: Abdominal pain. TECHNIQUE: Multiple real-time longitudinal and transverse images of the right upper quadrant of the abdomen were acquired utilizing a curved array transducer. Images were reviewed on a high-resolution PACS workstation. COMPARISON: None FINDINGS: The liver is normal in size and demonstrates normal echogenicity. No focal intrahepatic mass is identified. The gallbladder is normal in appearance. There is no pericholecystic fluid or gallbladder wall thickening. No intra or extrahepatic biliary dilatation is seen. The common bile duct measures 2.8 mm in maximal dimension. The portal and hepatic veins are patent demonstrating normal directional flow. The visualized portions of the pancreas are unremarkable with obscuration of the tail of the pancreas. No free fluid is identified. The right kidney measures 10.7 cm in length. There is normal echogenicity within the right kidney. There is no perinephric fluid collection. No hydronephrosis, mass, or calculus is seen. IMPRESSION: 1. Unremarkable right upper quadrant ultrasound. RPTAT: HH .Enedelia Cordova MD, Date Time Electronically viewed and signed by .Enedelia Cordova MD, MD on 06/08/2017 06 :38 .G/ CC: AMERICO GERONIMO PA-C, DEBORAH M. PA-C Jun 08, 2017 06:42
[2017-06-08 07:06] VITALS: BP 108/65; PULSE 70; RESP 18; TEMP 98.2
== END 2017-06-08 07:08 | disposition home or self-care (01) ==
LOC: FTE 23:17
DX: O26.891 Other specified pregnancy related conditions, first trimester (principal); R10.2 Pelvic and perineal pain; Z3A.00 Weeks of gestation of pregnancy not specified
CPT/HCPCS: 36415; 76705; 76801; 76817; 80053; 81001; 81003; 83690; 84702; 85025; 86900; 86901

== ENCOUNTER 2017-07-18 12:12 | Emergency (ER) | payer OTHER ==
[~2017-07-18] VITALS: Ht 157.5 cm; Wt 60.3 kg
[~2017-07-18 12:12] MED LIST changes: +HYDR-906 PO
[2017-07-18 12:15] VITALS: Ht 157.5 cm; Wt 60.3 kg
[2017-07-18 13:41] LABS: BASOPHILS % 0.5 % (0.0-2.0); EOSINOPHILS # 0.2 10^3/ul (0.0-0.5); EOSINOPHILS % 2.1 % (0.0-7.0); HEMATOCRIT 40.5 % (37.0-47.0); HEMOGLOBIN 13.3 g/dl (12.0-16.0); LYMPHOCYTES # 1.6 10^3/ul (0.8-2.9); LYMPHOCYTES % 19.2 % (18.0-55.0); MEAN CORPUSCULAR HEMOGLOBIN 24.8 pg (29.0-33.0); MEAN CORPUSCULAR HGB CONC 32.8 g/dl (32.0-37.0); MEAN CORPUSCULAR VOLUME 75.4 fl (72.0-104.0); MEAN PLATELET VOLUME 12.5 fl (7.4-10.4); MONOCYTE # 0.4 10^3/ul (0.3-0.9); MONOCYTES % 5.3 % (0.0-13.0); NEUTROPHIL # 5.9 10^3/ul (1.6-7.5); NEUTROPHILS % 72.5 % (30.0-74.0); PLATELET COUNT 249 10^3/UL (140-415); RED BLOOD COUNT 5.37 10^6/ul (4.20-5.40); RED CELL DISTRIBUTION WIDTH 14.6 % (11.5-14.5); WHITE BLOOD COUNT 8.1 10^3/ul (4.8-10.8)
[2017-07-18 13:52] LABS: ADD UMIC YES; UR ASCORBIC ACID 40 mg/dL (NEGATIVE); UR BILIRUBIN (Dip) NEGATIVE (NEGATIVE); UR BLOOD (Dip) NEGATIVE (NEGATIVE); UR CLARITY SLIGHTLY CLOUDY (CLEAR); UR COLOR YELLOW (YELLOW); UR GLUCOSE (Dip) NEGATIVE (NEGATIVE); UR KETONES (Dip) 1+ mg/dL (NEGATIVE); UR LEUKOCYTE ESTERASE (Dip) 3+ Leu/ul (NEGATIVE); UR MUCUS FEW /HPF (NONE SEEN); UR NITRITE (Dip) NEGATIVE (NEGATIVE); UR RBC 2 /HPF (0-5); UR SPECIFIC GRAVITY (Dip) 1.015 (1.003-1.030); UR SQUAMOUS EPITHELIAL CELL MODERATE /HPF (FEW); UR TOTAL PROTEIN (Dip) NEGATIVE (NEGATIVE); UR UROBILINOGEN (Dip) NEGATIVE (NEGATIVE)
--- NOTE | 2017-07-18 13:55 | RADRPT ---
PROCEDURE: US OB. CLINICAL INDICATION: Vaginal bleeding TECHNIQUE: Transabdominal and transvaginal pelvic ultrasound are performed. COMPARISON: None. FINDINGS: The uterus is normal in echogenicity and anteverted in orientation. No focal fibroids are identifi ed. Within the endometrial canal, gestational sac with normal double decidual reaction is identifie d. pole and yolk sac are seen. The crown-rump length measures 2.86 cm corresponding to an yasemin mated age of 9 weeks 5 days. Positive cardiac activity detected a rate of 152 beats per minute . No subchorionic hemorrhage is seen. Both ovaries are identified, and normal in size, shape, and appearance. No complex or solid adnexal masses are seen.. Normal Doppler flow is noted of both ovaries. The right ovary measures 1.8 x 1.1 x 1.2 cm, and the left ovary measures 2.6 x 1.8 x 1.5 cm There is no free fluid in the pelvis IMPRESSION: 1. Single live intrauterine of approximately 9 weeks 2 days. 2. Positive cardiac activity. 3. No subchorionic hemorrhage. 4. Ovaries grossly unremarkable RPTAT: HH .Ryan Pa MD, Date Time Electronically viewed and signed by .Ryan Pa MD, on 07/18/2017 13:55 .W/
[2017-07-18] MEDS ORDERED: CEPH-443 PO (14:40)
--- NOTE | 2017-07-18 15:20 | ERD ---
ER Documentation Chief Complaint Chief Complaint 2 mos with ap HPI Is a 21-year-old female presents to the ER complaining of lower pelvic pain that started yesterday. Patient states that pain is pressure-like and constant. She denies any urinary frequency or dysuria. She denies any vaginal bleeding. She is approximately 2-1/2 months . A0. Patient denies any nausea vomiting or diarrhea. She denies any back pain. ROS 12 point review of systems was done, all negative except per HPI. Medications Home Meds Active Scripts Cephalexin* (Keflex*) 500 Mg Capsule, 500 MG PO BID for 7 Days, CAP Prov:TALHA LARRY 07/18/17 Hydrocodone/Acetaminophen ([place]y 5-325 Tablet) 1 Each Tablet, 1 TAB PO Q6H Y for PAIN, #7 TAB Prov:URI TREJO PA-C 06/08/17 Ibuprofen* (Motrin*) 600 Mg Tab, 600 MG PO Q6H Y for PAIN AND OR ELEVATED TEMP, #30 TAB Prov:URI TREJO PA-C 12/17/16 Ibuprofen* (Ibuprofen*) 600 Mg Tablet, 600 MG PO Q6, #20 TAB 0 Refills Prov:BRODIE PABON MD 08/17/16 Reported Medications Vit-Iron Fumarate-FA ( Tablet) 1 Each Tablet, 1 TAB PO DAILY, TAB 04/25/16 Allergies Allergies: Coded Allergies: No Known Drug Allergy (Verified Allergy, Unknown, 07/18/17) PMhx/Soc Medical and Surgical Hx: pt denies Medical Hx, pt denies Surgical Hx History of Surgery: No Anesthesia Reaction: No Hx Neurological Disorder: No Hx Respiratory Disorders: No Hx Cardiac Disorders: No Hx Psychiatric Problems: No Hx Miscellaneous Medical Probl: No Hx Alcohol Use: No Hx Substance Use: No Hx Tobacco Use: No Smoking Status: Never smoker Physical Exam Vitals Vital Signs Date Time Temp Pulse Resp B/P Pulse Ox O2 Delivery O2 Flow Rate FiO2 07/18/17 12:15 98.1 70 18 124/64 98 Physical Exam GENERAL: The patient is well developed and appropriate for usual state of health , in no apparent distress. HEENT: Atraumatic. Conjunctivae are pink. Pupils equal, round, and reactive to light. Extraocular muscles are grossly intact. Bilateral tympanic membranes are clear with no evidence of erythema, effusion or dulling of the light reflex. The oropharynx is clear with no erythema or exudates. NECK: C-spine is soft and supple. There is no cervical lymphadenopathy. CHEST: Clear to auscultation bilaterally. There are no rales, wheezes or rhonchi. HEART: Regular rate and rhythm. No murmurs, clicks, rubs or gallops. ABDOMEN: Soft, nontender and nondistended. Good bowel sounds. No rebound or guarding. No gross peritonitis. No gross organomegaly or masses. No Montoya sign or McBurney point tenderness. BACK: No midline or flank tenderness. EXTREMITIES: Equal pulses bilaterally. There is no peripheral clubbing, cyanosis or edema. No focal swelling or erythema. Full range of motion. Grossly neurovascularly intact. NEURO: Alert and oriented. Cranial nerves II through XII are intact. Motor strength in all 4 extremities with 5/5 strength. Sensation grossly intact. Normal speech and gait. SKIN: There is no apparent rash or petechia. The skin is warm and dry. Result Diagram: 07/18/17 1318 Results 24 hrs Laboratory Tests Test 07/18/17 13:18 White Blood Count 8.110^3/ul Red Blood Count 5.3710^6/ul Hemoglobin 13.3g/dl Hematocrit 40.5% Mean Corpuscular Volume 75.4fl Mean Corpuscular Hemoglobin 24.8pg Mean Corpuscular Hemoglobin Concent 32.8g/dl Red Cell Distribution Width 14.6% Platelet Count 75664^3/UL Mean Platelet Volume 12.5fl Neutrophils % 72.5% Lymphocytes % 19.2% Monocytes % 5.3% Eosinophils % 2.1% Basophils % 0.5% Nucleated Red Blood Cells % 0.0/100WBC Neutrophils # 5.910^3/ul Lymphocytes # 1.610^3/ul Monocytes # 0.410^3/ul Eosinophils # 0.210^3/ul Basophils # 0.010^3/ul Nucleated Red Blood Cells # 0.010^3/ul Urine Color YELLOW Urine Clarity SLIGHTLY CLOUDY Urine pH 6.0 Urine Specific [place] 1.015 Urine Ketones 1+mg/dL Urine Nitrite NEGATIVEmg/dL Urine Bilirubin NEGATIVEmg/dL Urine Urobilinogen NEGATIVEmg/dL Urine Leukocyte Esterase 3+Ryan/ul Urine Microscopic RBC 2/HPF Urine Microscopic WBC 7/HPF Urine Squamous Epithelial Cells MODERATE/HPF Urine Mucus FEW/HPF Urine Hemoglobin NEGATIVEmg/dL Urine Glucose NEGATIVEmg/dL Urine Total Protein NEGATIVEmg/dl Beta HCG, Quantitative 77839.0mIU/ml Procedures/MDM This is a 21-year-old female presents to the ER complaining of pelvic pain, patient is currently 9 weeks and does have a urinary tract infection could be causing her pelvic pain. At this time there is no nausea with her and she does have a normal ultrasound with normal blood work. Patient will be sent home with [facility]. He is to follow-up with her primary care doctor within 1-2 days or return to ER sooner if symptoms worsen. My medical decision making shared with the patient she understands and agrees with plan. Departure Diagnosis: Primary Impression: UTI (urinary tract infection) Condition: Stable Patient Instructions: Understanding Urinary Tract Infections (UTIs) Additional Instructions: Call your primary care doctor TOMORROW for an appointment during the next 1-2 days.See the doctor sooner or return here if your condition worsens before your appointment time. TALHA LARRY Jul 18, 2017 15:20
== END 2017-07-18 15:21 | disposition home or self-care (01) ==
LOC: FTE 12:12
DX: O23.41 Unspecified infection of urinary tract in pregnancy, first trimester (principal); R10.2 Pelvic and perineal pain; Z3A.09 9 weeks gestation of pregnancy
CPT/HCPCS: 36415; 76801; 81001; 84702; 85025; 86900; 86901; Z7502

== ENCOUNTER 2017-10-22 15:23 | Outpatient (CLI) | END 2017-10-22 18:40 | disposition home or self-care (01) ==

== ENCOUNTER 2018-02-14 15:50 | Inpatient (IN) | END 2018-02-17 18:15 | disposition home or self-care (01) | DRG 775 ==

== ENCOUNTER 2018-02-26 15:03 | Emergency (ER) | END 2018-02-26 19:10 | disposition home or self-care (01) ==